=== PATIENT | male | born 1965 | race Caucasian/White ===

== ENCOUNTER 2020-01-10 12:15 | Emergency (ER) | payer OTHER, BC ==
[2020-01-10] MEDS ORDERED: Lidocaine 2% 5 ML SDV INJECT ONE (12:22)
[2020-01-10] MEDS ORDERED: Lidocaine 1% with EPINEPHrine 1:100,000 20 ML MDV INJECT ONE (12:23)
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
[2020-01-10] MEDS ORDERED: Bacitracin Oint 1 GM U/D Packet TOP ONE (12:29)
[2020-01-10] MEDS ORDERED: Diphtheria,Pertussis(Acell),Tetanus Vaccine 0.5 ML Syringe IM ONE (12:29)
--- NOTE | 2020-01-10 12:40 | CT ---
Head CT Technique: Multiple axial sections through the brain were obtained. Intravenous contrast was not utilized. Comparison: No prior intracranial imaging is available. Findings: Ventricles along with basal cisterns and sulci over the convexities are within normal limits for the patient's age. No abnormal parenchymal densities are seen. No evidence of intracranial hemorrhage. No midline shift or mass effect is seen. Mild mucosal thickening seen within the maxillary and ethmoid sinuses and left frontal sinus. Mucosal thickening is noted within the sphenoid sinuses. Mastoid sinuses show nothing acute. No acute calvarial abnormality is identified. Impression: 1. Nothing acute is appreciated on noncontrast head CT exam. 2. Mucosal thickening within the paranasal sinuses which is most likely due to chronic sinusitis. Diagnostic code #2 This report was dictated in MDT
[2020-01-10] MEDS ORDERED: Cephalexin 500 MG Cap PO ONE (13:54)
== END 2020-01-10 14:20 | disposition home or self-care (01) ==
LOC: MW.ED 12:15
DX: S01.01XA Laceration without foreign body of scalp, initial encounter (principal); Z88.2 Allergy status to sulfonamides; Z23 Encounter for immunization; Z79.899 Other long term (current) drug therapy; V49.60XA Unspecified car occupant injured in collision with unspecified motor vehicles in traffic accident, initial encounter
CPT/HCPCS: 12002; 70450; 90471; 90715; 99283; A9270